=== PATIENT | male | born 1990 | race Caucasian/White ===

== ENCOUNTER 2018-04-25 10:30 | Inpatient (IN) | payer BC ==
[~2018-04-25] VITALS: Ht 180.3 cm; Wt 90.7 kg
[~2018-04-25 10:30] MED LIST: ATARAX,VISTARIL50 MG PO; CARBIDOPA/LEVOD1 TA1 PO; ONDANSETRON HYDR4 M1 PO
[2018-04-25 11:45] VITALS: BP 112/70
[2018-04-25 12:23] LABS: BILIRUBIN 1+ (NEGATIVE); BLOOD NEGATIVE (NEGATIVE); CLARITY CLOUDY (CLEAR); COLOR YELLOW (YELLOW); GLUCOSE NEGATIVE (NEGATIVE); KETONE NEGATIVE (NEGATIVE); LEUKO ESTERASE NEGATIVE (NEGATIVE); NITRITE NEGATIVE (NEGATIVE); SPECIFIC GRAVITY 1.025 (1.005-1.030); UROBILINOGEN 0.2 E.U./dl (0.2-1.0)
[2018-04-25 12:24] LABS: BASO % 0.5 % (0.0-1.0); EOS # 0.3 10*3/uL (0.0-0.4); EOS % 3.4 % (1.0-4.0); HEMATOCRIT 44.7 % (42.0-52.0); HEMOGLOBIN 14.9 g/dl (14.0-18.0); LYMPH # 1.8 10*3/uL (1.3-4.4); LYMPH % 22.7 % (27.0-41.0); MEAN CELL VOLUME 86.3 fl (80.0-94.0); MEAN CORPUSCULAR HGB 28.8 pg (27.0-31.0); MEAN CORPUSCULAR HGB CONC 33.3 g/dl (33.0-37.0); MEAN PLATELET VOLUME 10.1 fl (9.6-12.3); MONO # 0.7 10*3/uL (0.1-1.0); NEUT # 5.1 10*3/uL (2.3-7.9); PLATELET COUNT AUTOMATED 256 10*3/uL (130-400); RED BLOOD COUNT 5.18 10*6/uL (4.50-5.90); RED CELL DISTRI WIDTH 12.2 % (0-14.5)
[2018-04-25 12:32] LABS: INTERNATIONAL NORM RATIO 1.1 (2.0-3.5)
[2018-04-25 12:37] LABS: URINE AMPHETAMINES < 1000 (1000ng/ml); URINE BARBITURATES < 200 (200ng/ml); URINE BENZODIAZEPINES < 200 (200ng/ml); URINE CANNABINOIDS (THC) > 50 (50ng/ml); URINE COCAINE < 300 (300ng/ml); URINE METHADONE < 300 (300ng/ml); URINE OPIATES > 300 (300ng/ml)
[2018-04-25 12:38] LABS: ALBUMIN 3.5 gm/dl (3.1-4.5); ALKALINE PHOSPHATASE 62 U/L (45-117); BUN 8 mg/dl (7-24); CHLORIDE 104 mmol/L (98-107); CREATININE 0.93 mg/dL (0.70-1.30); POTASSIUM 4.1 mmol/L (3.5-5.1); SGOT/AST 19 IU/L (3-35); SGPT/ALT 44 U/L (12-78); SODIUM 139 mmol/L (136-145); TOTAL PROTEIN 7.7 gm/dL (6.4-8.2)
[2018-04-25 12:39] LABS: URINE PHENCYCLIDINE < 25 (25ng/ml)
[2018-04-25 12:40] LABS: ETHYL ALCOHOL < 3.0 mg/dl (<3)
[2018-04-25 12:48] LABS: BACTERIA 2+; MUCOUS 2+
[2018-04-25 12:49] LABS: COARSE GRANULAR CAST 20-30
[2018-04-25 16:00] VITALS: BP 130/63
[2018-04-25 20:46] VITALS: BP 130/76
[2018-04-26] VITALS: BP 127/71
[2018-04-26 08:00] VITALS: BP 105/50
[2018-04-26 16:00] VITALS: BP 110/56
[2018-04-27] VITALS: BP 134/71
[2018-04-27 08:00] VITALS: BP 132/62
== END 2018-04-27 12:02 | disposition home or self-care (01) | DRG 897 ==
LOC: 5E 10:30
PROVIDERS: Internal Medicine
DX: F11.23 Opioid dependence with withdrawal (principal); F12.10 Cannabis abuse, uncomplicated; F32.9 Major depressive disorder, single episode, unspecified; F90.9 Attention-deficit hyperactivity disorder, unspecified type; Z53.21 Procedure and treatment not carried out due to patient leaving prior to being seen by health care provider; Z72.0 Tobacco use; Z71.6 Tobacco abuse counseling; Z84.89 Family history of other specified conditions

== ENCOUNTER 2019-06-16 16:00 | Emergency (ER) | payer OTHER ==
[~2019-06-16] VITALS: Ht 180.3 cm; Wt 102.1 kg
[2019-06-16] MEDS ORDERED: IBU800 MG PO (18:16)
[2019-06-16] MEDS ORDERED: PREDNISONE20 M1 PO (18:16)
[2019-06-16] MEDS ORDERED: CYCLOBENZAPRINE10 MG PO (18:16)
== END 2019-06-16 18:19 | disposition home or self-care (01) ==
LOC: ED 16:00
DX: M54.5 Low back pain (principal); R20.0 Anesthesia of skin; R20.2 Paresthesia of skin; F17.200 Nicotine dependence, unspecified, uncomplicated; X58.XXXA Exposure to other specified factors, initial encounter; Y93.89 Activity, other specified; Y92.89 Other specified places as the place of occurrence of the external cause; Y99.8 Other external cause status